=== PATIENT | female | born 1965 | race American Indian/Alaskan Native ===

== ENCOUNTER 2016-08-02 08:43 | Outpatient (CLI) | payer OTHER | END 2016-08-02 08:44 | disposition home or self-care (01) | LOC: PET 08:43 | PROVIDERS: ATTEND Obstetrics & Gynecology Gynecologic Oncology | DX: Z85.41 Personal history of malignant neoplasm of cervix uteri (principal); Z79.899 Other long term (current) drug therapy | CPT/HCPCS: 82962 ==

== ENCOUNTER 2016-08-16 08:40 | Outpatient (CLI) | payer OTHER | END 2016-08-16 08:41 | disposition home or self-care (01) | LOC: PET 08:40 | PROVIDERS: ATTEND Obstetrics & Gynecology Gynecologic Oncology | DX: Z85.41 Personal history of malignant neoplasm of cervix uteri (principal); Z79.899 Other long term (current) drug therapy | CPT/HCPCS: 82962 ==

== ENCOUNTER 2016-08-24 06:10 | Day surgery (SDC) | payer OTHER ==
[~2016-08-24 06:10] MED LIST: ANCEF/STERILE WATER 2 GM/20 ML 2 GM/20 ML SYRINGE IV SCH; ceFAZolin 2 GM in NACL 0.9% 100 ML IV ONE
[2016-08-24] MEDS ORDERED: DILAUDID ONE (06:30)
[2016-08-24] MEDS ORDERED: DIPRIVAN 10 MG/ML IV ONE (06:30)
[2016-08-24] MEDS ORDERED: VERSED ONE (06:30)
[2016-08-24] MEDS ORDERED: XYLOCAINE MPF 2% ONE (06:31)
[2016-08-24] MEDS ORDERED: NACL BACTERIOSTATIC INFILTRATI ONE (07:03)
--- NOTE | 2016-08-24 07:16 | Anesthesia Day of Surgery ---
Anesthesia Day of Surgery - Day of Surgery Patient Examined: Yes Patient H&P Reviewed: Yes Patient is NPO: Yes Beta Blockers: Yes
--- NOTE | 2016-08-24 07:17 | Anesthesia Consultation ---
Anesthesia Consult and Med Hx - Airway Anesthetic Teeth Evaluation: Good ROM Head & Neck: Adequate Mental/Hyoid Distance: Adequate Mallampati Class: Class III Intubation Access Assessment: Possibly Difficult - Pulmonary Exam CTA: Yes - Cardiac Exam Cardiac Exam: RRR - Pre-Operative Health Status ASA Pre-Surgery Classification: ASA2 Proposed Anesthetic Plan: MAC - Pulmonary Hx Smoking: No Hx Sleep Apnea: No (ANNETTA PRE SCREEN HIGH RISK) - Cardiovascular System Hx Hypertension: Yes (2012) - Central Nervous System Hx Psychiatric Problems: No - Gastrointestinal Hx Gastroesophageal Reflux Disease: No - Endocrine Hx Non-Insulin Dependent Diabetes: No Hx Hypothyroidism: Yes (ON MEDS) - Hematic Hx Anemia: Yes - Other Systems Hx Cancer: Yes (CERVICAL W/METS TO LUNGS) - Additional Comments Anesthesia Medical History Comments: NPO after MN. No prior anesthetic complications. Hx cervical cancer with"spots on my lungs". HTN and hypothyroidism. Took Beta Oscar today.
[2016-08-24 07:44] LABS: Hematocrit 40.6 % (30.3-42.9); Hemoglobin 13.5 gm/dl (10.1-14.3)
[2016-08-24] MEDS ORDERED: NACL 0.9% 1000 ML 1,000 ML IV SCH (08:00)
[2016-08-24] MEDS ORDERED: VERSED IV NR (08:00)
[2016-08-24] MEDS ORDERED: PEPCID PO NR (08:00)
[2016-08-24] MEDS ORDERED: MARCAINE 0.5% 30 ML INFILTRATI ONE (08:14)
[2016-08-24] MEDS ORDERED: XYLOCAINE 1% 20 mL ONE (08:15)
[2016-08-24] MEDS ORDERED: ZOFRAN ONE (09:30)
[2016-08-24] MEDS ORDERED: MARCAINE 0.5% INFILTRATI ONE (09:49)
[2016-08-24] MEDS ORDERED: NACL 0.9% IR ONE (09:50)
[2016-08-24] MEDS ORDERED: XYLOCAINE 1% 20 mL INFILTRATI ONE (09:50)
--- NOTE | 2016-08-24 09:54 | Post Operative Note ---
Pre-op diagnosis: malf infuse a port Post-op diagnosis: same Findings: as above Procedure: removal inf port Anesthesia: MAC Surgeon: LAITH HOGUE Estimated blood loss: minimal Pathology: none Condition: stable Disposition: PACU
--- NOTE | 2016-08-24 09:55 | Discharge Summary ---
Short Stay Discharge Plan Weight Bearing Status: Full Weight Bearing Diet: regular Wound: open to air Follow up with: PACO DEAL MD [Primary Care Provider] - 7 Days
--- NOTE | 2016-08-24 09:57 | Discharge Summary ---
Short Stay Discharge Plan Follow up with: PACO EDAL MD [Primary Care Provider] - 7 Days Prescriptions: traMADol [Ultram 50 MG tab] 50 mg PO Q6HR PRN #20 tablet PRN Reason: Pain
[2016-08-24 10:48] VITALS: BP 104/65
--- NOTE | 2016-08-24 11:49 | Post Anesthesia Evaluation ---
- Post Anesthesia Evaluation Patient Participated: Yes Airway Patent: Yes Stable Respiratory Function: Yes Nausea/Vomiting: No Temp > 96.8F: Yes Pain Manageable: Yes Adequeate Hydration: Yes Anesthesia Complications: No Block Receding Appropriately: Not Applicable Patient on Ventilator: No
--- NOTE | 2016-08-24 12:16 | Operative Report ---
PREOPERATIVE DIAGNOSIS: Malfunctioning Infusaport. POSTOPERATIVE DIAGNOSIS: Malfunctioning Infusaport. OPERATIVE PROCEDURE: Removal of malfunctioning Infusaport. ANESTHESIA: Local 1% Xylocaine with 0.25% Marcaine. INDICATIONS: A 51-year-old female patient with history of cervical cancer had an Infusaport placed through the left subclavian line by another surgeon in [facility]. She has completed the chemotherapy and the port is no longer used. Because of this, she is brought in for removal of port. DESCRIPTION OF PROCEDURE: The port was placed in the left infraclavicular area in the lateral third aspect. This area was prepped and draped. Skin and subcutaneous tissue and deeper tissues were adequately infiltrated with the local anesthetic. An incision was made through the scar of previous surgery and was deepened down and the fibrous sheath around the port was taken down without use of cautery and the port was removed with the catheter intact. Pressure was applied to the left infraclavicular area. No bleeding or hematoma was noted. The sheath was approximated with #2-0 Vicryl. Subcutaneous tissue approximated with #3-0 Vicryl and skin with #4-0 Vicryl sutures. There was minimal blood loss and she tolerated the procedure well. JOB# [id number] ADDISN/RENAY
== END 2016-08-24 11:20 | disposition home or self-care (01) ==
LOC: OR 06:10
PROVIDERS: ATTEND Surgery
DX: T82.598A Other mechanical complication of other cardiac and vascular devices and implants, initial encounter (principal); I10 Essential (primary) hypertension; E03.9 Hypothyroidism, unspecified; D64.9 Anemia, unspecified; Z85.41 Personal history of malignant neoplasm of cervix uteri; Z79.899 Other long term (current) drug therapy; Y83.8 Other surgical procedures as the cause of abnormal reaction of the patient, or of later complication, without mention of misadventure at the time of the procedure
CPT/HCPCS: 36415; 36590; 82962; 85014; 85018; J0690; J1170; J2250; J2405; J2704; J7030; J1815

== ENCOUNTER 2016-09-20 08:15 | Outpatient (CLI) | payer OTHER ==
--- NOTE | 2016-09-21 08:21 | PET Report ---
PET SB TO MT SUBSEQUENT: HISTORY: Cervical cancer. TECHNIQUE: 12.7 millicuries F-18 FDG was administered intravenously. Noncontrast CT images and PET images were obtained from the skull base to the proximal thighs. Fused images were reviewed on a workstation. The patient's blood glucose level measured 150. COMPARISON: 03/17/15. FINDINGS: BRAIN: physiologic FDG uptake in the imaged brain. NECK: There is increased uptake within the left parotid gland since the previous exam. A soft tissue density nodule has increased from 1.0 cm to 2.0 cm. Max SUV has increased from 3.1 to 6.1. MEDIASTINUM: physiologic FDG uptake. LUNGS: physiologic FDG uptake. PLEURA/PERICARDIUM: physiologic FDG uptake. THORACIC LYMPH NODES: There is a new enlarged right axillary lymph node measuring 2.7 x 1.3 cm which demonstrates a max SUV of 4.5. A second right axillary lymph node is stable in size measuring 1.4 x 1.0 cm but now demonstrates mild increased metabolic activity with Max SUV measuring 2.7. There is a third normal size right axillary lymph node which demonstrates a max SUV of 2.1. HEPATOBILIARY: physiologic FDG uptake. Mean liver SUV measures 5.1. PANCREAS: physiologic FDG uptake. SPLEEN: physiologic FDG uptake. ADRENAL GLANDS: physiologic FDG uptake. KIDNEYS/RENAL COLLECTING SYSTEMS: physiologic FDG uptake. BOWEL/MESENTERY: physiologic FDG uptake. PELVIC VISCERA: physiologic FDG uptake. ABDOMINAL/PELVIC LYMPH NODES: physiologic FDG uptake. MUSCULOSKELETAL: physiologic FDG uptake. IMPRESSION: There are 2 new mildly hypermetabolic lymph nodes in the right axilla as outlined above concerning for disease recurrence/metastasis. A soft tissue density nodule within or adjacent to the left parotid gland has increased in size and metabolic activity as described. It is unclear if this is related to the patient's known history of cervical cancer or if this represents a separate parotid lesion.
== END 2016-09-20 08:16 | disposition home or self-care (01) ==
LOC: PET 08:15
PROVIDERS: ATTEND Obstetrics & Gynecology Gynecologic Oncology
DX: R59.9 Enlarged lymph nodes, unspecified (principal); Z85.41 Personal history of malignant neoplasm of cervix uteri
CPT/HCPCS: 78815; 82962; A9552

== ENCOUNTER 2017-09-30 05:42 | Emergency (ER) | payer OTHER ==
[2017-09-30] MEDS ORDERED: TYLENOL PO ONE (06:02)
[2017-09-30] MEDS ORDERED: SUBLIMAZE IV NR (07:39)
[2017-09-30] MEDS ORDERED: SUBLIMAZE IV ONE (07:39)
[2017-09-30] MEDS ORDERED: ZOFRAN IV ONE ×2 (07:39)
--- NOTE | 2017-09-30 07:45 | Emergency Department Report ---
ED Headache HPI - General Chief Complaint: Headache Stated Complaint: H/A Time Seen by Provider: 09/30/17 07:36 - History of Present Illness Initial Comments: Patient is 52 years old female history of cervical cancer 4 years ago, finished chemotherapy. Patient presented to the ER complaining of headache started last night. Patient stated that she had history of migraine but for the last 2 years he did not have any headache. She is stating that her headache is associated with nausea. Patient is also complaining of neck pain but she is denying any fever or neck stiffness. Patient denied any chest pain, abdominal pain, loss of consciousness, weakness numbness or tingling sensation. No bowel or bladder incontinence. Timing/Duration: 24 hours Quality: moderate Head Injury Location: global Recent Head Trauma: no recent headache/trauma Modifying Factors: worse with: cold therapy, exposure to light, immobilization, medication, movement, rest, other Associated Symptoms: nausea/vomiting. denies: denies symptoms, confusion, fatigue, facial pain, fever/chills, flushing, loss of consciousness, nasal congestion, nasal drainage, numbness in legs/feet, rash, seizures, sinus infection, stiff neck, vision changes, weakness, other Allergies/Adverse Reactions: Allergies No Known Allergies Allergy (Verified 03/10/13 07:20) Home Medications: Ambulatory Orders Multivitamin [Multi-Vitamin Daily] 1 tab PO QDAY 03/10/13 Levothyroxine [Synthroid] 25 mcg PO QAM 08/16/16 Losartan [Cozaar] 50 mg PO QDAY 08/16/16 Metoprolol [Lopressor TAB] 50 mg PO DAILY 08/16/16 traMADol [Ultram 50 MG tab] 50 mg PO Q6HR PRN #20 tablet 08/24/16 ED Review of Systems ROS: Stated complaint: H/A Other details as noted in HPI Comment: All other systems reviewed and negative Constitutional: denies: chills, fever Respiratory: denies: cough, orthopnea, shortness of breath, SOB with exertion, SOB at rest Cardiovascular: denies: chest pain, palpitations, dyspnea on exertion Gastrointestinal: nausea. denies: abdominal pain, vomiting, diarrhea, constipation, hematemesis, melena, hematochezia Musculoskeletal: denies: back pain Neurological: headache. denies: weakness, numbness, paresthesias, confusion, abnormal gait, vertigo ED Past Medical Hx - Past Medical History Previous Medical History?: Yes Hx Diabetes: Yes Hx of Cancer: Yes (cervical) - Surgical History Past Surgical History?: No - Social History Smoking Status: Never Smoker Substance Use Type: None - Medications Home Medications: Home Medications Medication Instructions Recorded Confirmed Last Taken Type Multivitamin [Multi-Vitamin Daily] 1 tab PO QDAY 03/10/13 08/24/16 08/23/16 History Levothyroxine [Synthroid] 25 mcg PO QAM 08/16/16 08/16/16 08/24/16 05:30 History Losartan [Cozaar] 50 mg PO QDAY 08/16/16 08/16/16 08/24/16 05:30 History Metoprolol [Lopressor TAB] 50 mg PO DAILY 08/16/16 08/16/16 08/24/16 05:30 History traMADol [Ultram 50 MG tab] 50 mg PO Q6HR PRN #20 tablet 08/24/16 Unknown Rx ED Physical Exam - General Limitations: No Limitations General appearance: alert, in no apparent distress - Head Head exam: Present: atraumatic, normocephalic, normal inspection - Eye Eye exam: Present: normal appearance, PERRL - ENT ENT exam: Present: normal exam, normal orophraynx, mucous membranes moist - Neck Neck exam: Present: normal inspection, full ROM. Absent: tenderness, meningismus, lymphadenopathy, thyromegaly - Respiratory Respiratory exam: Present: normal lung sounds bilaterally - Cardiovascular Cardiovascular Exam: Present: regular rate, normal rhythm, normal heart sounds - GI/Abdominal GI/Abdominal exam: Present: soft, normal bowel sounds. Absent: distended, tenderness, guarding, rebound, rigid, organomegaly, mass, bruit, pulsatile mass , hernia - Extremities Exam Extremities exam: Present: normal inspection, full ROM, normal capillary refill - Back Exam Back exam: Present: normal inspection, full ROM. Absent: tenderness, CVA tenderness (R), CVA tenderness (L), muscle spasm, paraspinal tenderness, vertebral tenderness, rash noted - Neurological Exam Neurological exam: Present: alert, oriented X3, CN II-XII intact, normal gait - Skin Skin exam: Present: warm, intact, normal color ED Course Vital Signs 09/30/17 09/30/17 09/30/17 05:41 06:08 06:37 Temperature 98.4 F Pulse Rate 83 Respiratory 18 20 Rate Blood Pressure 146/93 106/86 Blood Pressure [Left] O2 Sat by Pulse 99 Oximetry 09/30/17 09/30/17 09/30/17 06:48 07:01 07:46 Temperature 98.3 F Pulse Rate 73 Respiratory 20 18 Rate Blood Pressure 134/77 Blood Pressure 106/86 [Left] O2 Sat by Pulse 100 98 Oximetry 09/30/17 09/30/17 09/30/17 08:00 09:55 10:00 Temperature Pulse Rate 84 Respiratory 19 Rate Blood Pressure 157/71 140/64 145/78 Blood Pressure [Left] O2 Sat by Pulse 96 100 Oximetry - Reevaluation(s) Reevaluation #1: 09/30/17 10:20 A call immediately put to [facility] neurosurgery service for a transfer. Reevaluation #2: 09/30/17 10:21 N still alert oriented 3 she still complaining of headache. Patient is still denying any weakness numbness or tingling sensation. ED Medical Decision Making - Lab Data Result diagrams: 09/30/17 07:49 09/30/17 07:49 - Radiology Data Radiology results: report reviewed Referring Physician: HALIE RASCON Patient Name: CAROLINE HINKLE Date of : 1965 Sex: Female Report Date: 2017-09-30 Report Status: Finalized Findings [facility] [address] [place] [address] Cat Scan Report Signed Patient: CAROLINE HINKLE MR#: [id number] : 1965 Acct:[id number] Age/Sex: 52 / F ADM Date: 09/30/17 Loc: ED Attending Dr: Ordering Physician: HALIE RASCON Date of Service: 09/30/17 Procedure(s): CT head/brain wo/w con Accession Number(s): [id number] cc: HALIE RASCON CT head without contrast: Headache; history of cervical cancer. There is high attenuation in the subarachnoid spaces of the tan-mesencephalic cistern and extending inferiorly into the base of the brain primarily. There is a small amount of high attenuation in the sylvian fissures and questionably along the middle cerebral vessels. There is no mass effect. The ventricular system is unremarkable. No extracerebral collections. Visualized bones and paranasal sinuses are unremarkable. Impression: Subarachnoid hemorrhage most likely originating from a posterior vessel such as posterior cerebral artery. Both arterial and venous sources should be considered. The findings have been verbally reported to the emergency room physician. Transcribed By: KARLA Dictated By: ALIDA GRIJALVA MD Electronically Authenticated By: ALIDA GRIJALVA MD Signed Date/Time: 09/30/17936 Referring Physician: HALIE RASCON Patient Name: CAROLINE HINKLE Date of : 1965 Sex: Female Report Date: 2017-09-30 Report Status: [place] [address] Cat Scan Report Signed Patient: CAROLINE HINKLE MR#: [id number] : 1965 Acct:[id number] Age/Sex: 52 / F ADM Date: 09/30/17 Loc: ED Attending Dr: Ordering Physician: HALIE RASCON Date of Service: 09/30/17 Procedure(s): CT cervical spine wo con Accession Number(s): [id number] cc: HALIE RASCON CT cervical spine without contrast: Neck pain. History of neck cancer. Transverse images obtained from the skull base to the thoracic inlet. Images restricted to the cervical spine. Coronal and sagittal 2-D reformatted images included. Anterior traction spurs noted at C5-6. Vertebral height, alignment, and bony mineralization is generally preserved. The foramina and spinal canal are patent. No visible soft tissue mass. Impression: No pathology identified on this exam. Transcribed By: KARLA Dictated By: ALIDA GRIJALVA MD Electronically Authenticated By: ALIDA GRIJALVA MD Signed Date/Time: 09/30/17923 DD/ 0 TD/TT: 09/30/17923 DD/ 8 TD/TT: 09/30/17936 - Medical Decision Making Family Stated that they don't want the patient admitted to [facility], family requested patient to be transferred to [facility]. I discussed the patient is Dr. Johnson, neurosurgeon, at [facility]. He accepted the patient to be transferred to [facility] at [facility], ICU, room 248. Critical Care Time: Yes Critical care time in (mins) excluding proc time.: 30 Critical care attestation.: If time is entered above; I have spent that time in minutes in the direct care of this critically ill patient, excluding procedure time. ED Disposition Clinical Impression: Acute headache, Subarachnoid hemorrhage Disposition: [id number]/TX-[id number] ANOTHER TYPE HLTHCARE Is pt being admited?: No Condition: Stable Referrals: PRIMARY CARE, [Primary Care Provider] - 3-5 Days
[2017-09-30 08:10] LABS: Basophils % (Auto) 0.5 % (0.0-1.8); Eosinophils % (Auto) 0.2 % (0.0-4.3); Hematocrit 38.6 % (30.3-42.9); Hemoglobin 13.1 gm/dl (10.1-14.3); Lymphocytes # (Auto) 1.2 K/mm3 (1.2-5.4); Lymphocytes % (Auto) 16.6 % (13.4-35.0); Mean Corpuscular HGB Conc 34 % (30-34); Mean Corpuscular Hemoglobin 29 pg (28-32); Mean Corpuscular Volume 85 fl (79-97); Monocytes # (Auto) 0.4 K/mm3 (0.0-0.8); Monocytes % (Auto) 5.9 % (0.0-7.3); Platelet Count 217 K/mm3 (140-440); Red Blood Count 4.52 M/mm3 (3.65-5.03)
[2017-09-30 08:30] LABS: Alanine Aminotransferase 26 units/L (7-56); BUN/Creatinine Ratio 15; Blood Urea Nitrogen 15 mg/dL (7-17); Calcium 9.7 mg/dL (8.4-10.2); Hemolysis Index 6
--- NOTE | 2017-09-30 09:45 | Cat Scan Report ---
CT cervical spine without contrast: Neck pain. History of neck cancer. Transverse images obtained from the skull base to the thoracic inlet. Images restricted to the cervical spine. Coronal and sagittal 2-D reformatted images included. Anterior traction spurs noted at C5-6. Vertebral height, alignment, and bony mineralization is generally preserved. The foramina and spinal canal are patent. No visible soft tissue mass. Impression: No pathology identified on this exam.
--- NOTE | 2017-09-30 09:58 | Cat Scan Report ---
CT head without contrast: Headache; history of cervical cancer. There is high attenuation in the subarachnoid spaces of the tan-mesencephalic cistern and extending inferiorly into the base of the brain primarily. There is a small amount of high attenuation in the sylvian fissures and questionably along the middle cerebral vessels. There is no mass effect. The ventricular system is unremarkable. No extracerebral collections. Visualized bones and paranasal sinuses are unremarkable. Impression: Subarachnoid hemorrhage most likely originating from a posterior vessel such as posterior cerebral artery. Both arterial and venous sources should be considered. The findings have been verbally reported to the emergency room physician.
[2017-09-30] MEDS ORDERED: KEPPRA 1,000 MG/NS 0.75% 100ML 1,000 MG/100 ML BAG IV ONE (10:58)
[2017-09-30 11:00] LABS: Bilirubin,Urine NEG (Negative); Blood,Urine SM (Negative); Color,Urine Straw (Yellow); Protein,Urine <15 mg/dL mg/dL (Negative); Urobilinogen,Urine < 2.0 mg/dL (<2.0)
[2017-09-30] MEDS ORDERED: SUBLIMAZE ONE (11:10)
[2017-09-30] MEDS ORDERED: AMICAR 5,000 MG in NACL 0.9% 100 ML IV ONE (11:30)
[2017-09-30 11:48] VITALS: BP 138/71
== END 2017-09-30 12:17 | disposition other institution (70) ==
LOC: ED 05:42
DX: I60.9 Nontraumatic subarachnoid hemorrhage, unspecified (principal); E11.9 Type 2 diabetes mellitus without complications; R51 Headache
CPT/HCPCS: 36415; 70470; 72125; 80053; 81001; 85025; 96365; 96367; 96375; 99291; J1953; J2405; J3010; Q9967